=== PATIENT | female | born 1995 ===

== ENCOUNTER 2021-11-01 18:51 | Emergency (ER) | payer SELFPAY ==
[2021-11-01 20:10] VITALS: BP 118/85
== END 2021-11-01 21:00 | disposition left against medical advice (07) ==
LOC: ED 18:51
DX: S90.852A Superficial foreign body, left foot, initial encounter (principal); Z53.21 Procedure and treatment not carried out due to patient leaving prior to being seen by health care provider; X58.XXXA Exposure to other specified factors, initial encounter; Y93.9 Activity, unspecified; Y92.89 Other specified places as the place of occurrence of the external cause; Y99.8 Other external cause status